=== PATIENT | female | born 1995 | race Caucasian/White ===

== ENCOUNTER 2018-12-20 20:00 | Inpatient (IN) | payer OTHER ==
[~2018-12-20] VITALS: Ht 157.5 cm; Wt 86.5 kg
[2018-12-20] MEDS ORDERED: FERR325T3 PO (20:48)
[2018-12-20] MEDS ORDERED: TUMS500C PO (20:48)
[2018-12-20] MEDS ORDERED: PRENTAB9 PO (20:48)
[2018-12-20] MEDS ORDERED: LR 1,000 ML IV SCH (20:59)
[2018-12-20] MEDS ORDERED: LACTATED RINGER'S 1000 ML IV STA (20:59)
--- NOTE | 2018-12-20 21:34 | HPEPDOC ---
Obstetrical History & Physical General Date of Admission Dec 20, 2018 at 20:50 History of Present Illness 23 yo G1 @ 39+2 by LMP([id number]) and 9+0 wk US on [id number] presents to L&D [facility] age ambulatory with c/o LOF and CTXs. Reports SROM clear fluid at 1820. Denies DFM and vaginal bleeding. GBS negative. Chief Complaint: Contractions, term, LOF, term Information Provided By: Patient Age: 23 : 1 Term: 0 Pre-term: 0 Abortions: 0 Livin Care Care: Good Care Number of Visits: 10 Dating Final EDC: Dec 25, 2018 Final EDC for Daily Update: Dec 25, 2018 Final EDC by: LMP, 1st trimester (US) LMP: Mar 20, 2018 1st Trimester Date: May 21, 2018 Weeks + Days: 9.0 Estimated Date of Confinement: Dec 25, 2018 EGA at Admission: 39.2 Antepartum Course Diagnos(e)s 1. BMI-32.2 2. anemia 3. UTI in 1st trimester 4. HGSIL with LEEP in JANUARY2018 5. 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 Asthma-childhood 2. BMI- 32.2 Surgical History: Other (LEEP) Family History Significant Family History: No pertinent family hx Social History Marital Status: Family situation: Spouse/partner home Psychosocial History: No pertinent psych hx * Smoker: non-smoker Alcohol: Denies Drugs: denies Abuse Violence Screening Have you been hit/kicked/slapp: No Have you been sexually assault: No Imunizations Tdap status: needs (missed window when changing providers) Influenza Status: declined (with education) Allergies Coded Allergies: No Known Allergies (Unverified , 12/20/18) Medications Scheduled Multivitamins/ ( 27-0.8 mg) 1 Tab Tab, 1 TAB PO DAILY Miscellaneous Medications Calcium Carbonate (Tums) 500 Mg Chw, 500 MG PO Ferrous Sulfate (Ferrous Sulfate) 325 Mg Tab, 325 MG PO Physical Examination Physical Examination GENERAL: A&O x 3 BREAST: . ABDOMEN: Gravid and Non-tender to palpation FETUS: VTX by Sahil and SVE HEART RATE: RRR LUNGS: CTA EXTREMITIES: No edema. No clonus. DTRs + 1. [id number] grams Laboratory Data CBC/BMP [id number] CBC-10.4/12.9/38.6/338 Pertinent Laboratoy Data Blood Type: O+ RBC Antibody Screen: Negative HIV: Negative Hepatitis B: Negative Hepatitis C: Negative Rapid Plasma Reagin: Nonreactive Rubella: Immune Varicella: Unknown Chlamydia/Gonorrhea: Negative Group B Streptococcus: Negative Glucose Tolerance Test: 139 Anatomy Ultrasound Ultrasound Date: Aug 07, 2018 Placenta Location: Anterior Normal Anatomy: Yes Placenta Previa: No Estimated Weight (grams): 351 Steroid Therapy Steroid Therapy: No Vaginal Examination Dilation: 1cm Effacement: 50% Station: -2 Cervical Consistency: Medium Cervical Position: Posterior Presentation: Cephalic presentation Position: Vertex (occiput) Assessment Heart Rate (FHR): 130 Variability: Moderate Accelerations: Positive Decelerations: None Tocometer Contractions: Yes Frequency: regular, other (every 2-3 min) Duration: less than 90 seconds Strength: palpated as mild, resting tone palp/soft Multi-drug resistant Organism: No history of MDRO Assessment/Plan Assessment 23 yo G1 @ 39+2 SROM clear fluid @ 1820. Regular CTXs. CAT I FHR tracing. GBS negative. Plan Admit and orient. 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 Diet: clear liquids GBS negative Labs and IV per unit protocol. LR: Bolus 1000 mL, then at 125 mL/hr. Anticipate C-S as appropriate. JO ANN CARBALLO CNM Dec 20, 2018 21:34
[2018-12-20 21:52] LABS: HEMATOCRIT 34.8 % (36.0-47.0); HEMOGLOBIN 11.1 g/dl (12.0-15.5); MEAN CORPUSCULAR HEMOGLOBIN 26.7 pg (27.0-33.0); MEAN CORPUSCULAR HGB CONC 31.9 g/dl (32.0-36.5); MEAN CORPUSCULAR VOLUME 83.9 fl (80.0-96.0); PLATELET COUNT, AUTOMATED 205 10^3/uL (150-450); RED BLOOD COUNT 4.15 10^6/uL (4.00-5.40); WHITE BLOOD COUNT 8.5 10^3/uL (4.0-10.0)
[2018-12-20 22:12] LABS: ALT/SGPT 9 U/L (12-78); LDH LACTATE DEHYDROGENASE 194 U/L (84-246); URIC ACID 6.7 MG/DL (2.6-6.0)
[2018-12-20 22:23] LABS: TOTAL PROTEIN,RANDOM URINE 862.3 MG/DL (0.0-12.0)
--- NOTE | 2018-12-20 22:37 | IPNPDOC ---
Text Note Date of Service The patient was seen on 12/20/18. NOTE [id number] @ 2237 23 yo G1 @ 39+2 SROM clear fluid @ 1820. Denies KAM, visual changes, RUQ pain, and n/v. Multiple mild range BPs noted with isolated severe range BP. BL pre-e labs drawn. PCR-6.84 Dx of pre-e without severe features diagnosed at this time. A: 23 yo G1 @ 39+2 with SROM x 4 hours. Fluid remains clear. CAT I FHR tracing with regular CTXs. P: Continue to monitor and assess. Reassess in 2-4 hours or prn. Initiate magnesium if severe range BPs return. Laboratory Tests 2 12/20/18 21:36: Nucleated Red Blood Cells % (auto) 0.0, Uric Acid 6.7H, Aspartate Amino Transf (AST/SGOT) 15, Alanine Aminotransferase (ALT/SGPT) 9L, Lactate Dehydrogenase 194 12/20/18 21:40: Urine Random Creatinine 126.0, Urine Random Total Protein 862.3H 12/20/18 21:45: Bedside Glucose (Misc Panel) 70 VS,Fishbone, I+O VS, Fishbone, I+O Laboratory Tests 12/20/18 21:36 Red Blood Count 4.15, Mean Corpuscular Volume 83.9, Mean Corpuscular Hemoglobin 26.7 L, Mean Corpuscular Hemoglobin Concent 31.9 L, Red Cell Distribution Width 16.2 H JO ANN CARBALLO CNM Dec 20, 2018 22:37
[2018-12-21] VITALS (10 sets, daily range): BP systolic 100–139; BP diastolic 58–92
--- NOTE | 2018-12-21 02:21 | IPNPDOC ---
Text Note Date of Service The patient was seen on 12/21/18. NOTE [id number] @ 0214 23 yo G1 @ 39+3 SROM clear fluid @ 1820 on 20DEC2018. Denies KAM, visual changes, RUQ pain, and n/v. S: Resting in bed on her right side breathing through her CTXs. States she would like an epidural. Spouse is at bedside O: VS- BPs remain in the mild range. No additional severe range BPs since 2056. All other VS WNL, afebrile FHR- BL- 125, moderate variability, + accels, no decels CTX- Q 2-3 min, lasting < 90 sec, palpated as moderate, resting tone palpated as soft SVE- 3/80/-2, soft/mid/vtx SROM x 8 hours, fluid remains clear A: 23 yo G1 @ 39+2 with SROM x 8 hours. No s/s of infection. CAT I FHR tracing with regular CTXs and cervical change noted. P: Continue to monitor and assess. Reassess in 4 hours or prn. Anesthesia consult for patient requested epidural. Initiate 1000 ml LR bolus then at 125 ml/hr. Initiate magnesium if severe range BPs return. VS,Fishbone, I+O VS, Fishbone, I+O Laboratory Tests 12/20/18 21:36 Red Blood Count 4.15, Mean Corpuscular Volume 83.9, Mean Corpuscular Hemoglobin 26.7 L, Mean Corpuscular Hemoglobin Concent 31.9 L, Red Cell Distribution Width 16.2 H JO ANN CARBALLO CNM Dec 21, 2018 02:21
[2018-12-21] MEDS ORDERED: FENTANYL 2MCG/ML ROPIVACAINE 0.2% IN 0.9% NACL 100ML IVBAG As Ordered ONE (02:32)
[2018-12-21] MEDS ORDERED: EPIDURAL/PCA KEYS XX PRN (03:02)
[2018-12-21] MEDS ORDERED: EPIDURAL COMMENT XX SCH (03:02)
[2018-12-21] MEDS ORDERED: NALOXONE INJ 0.4 MG/1 ML VIAL (J2310) IV PRN (03:02)
[2018-12-21] MEDS ORDERED: FENTANYL/ROPIVACAINE/NACL BAG 100 ML EPIDURAL SCH (03:02)
[2018-12-21] MEDS ORDERED: diphenhydrAMINE INJ 50MG/ML VIAL (J1200) IV PRN (03:02)
[2018-12-21] MEDS ORDERED: REFRIGERATOR IV KEYS XX PRN (03:02)
[2018-12-21] MEDS ORDERED: LACTATED RINGER'S 1000 ML IV PRN (03:02)
[2018-12-21] MEDS ORDERED: ePHEDrine SULFATE 25 MG/5 ML(5MG/ML) SYRINGE IV PRN (03:02)
[2018-12-21] MEDS ORDERED: ONDANSETRON 4MG/2ML VIAL (J2405) IV PRN (03:02)
--- NOTE | 2018-12-21 06:57 | IPNPDOC ---
Text Note Date of Service The patient was seen on 12/21/18. NOTE [id number] @ 0650 23 yo G1 @ 39+3 SROM clear fluid @ 1820 on 20DEC2018. Denies KAM, visual changes, RUQ pain, and n/v. S: Resting in bed on her left side comfortable with epidural infusing. Spouse is at bedside O: VS- mostly normal range BPs with occasional mild range BP since epidural placed. No additional severe range BPs since 2056. All other VS WNL, afebrile FHR- BL- 135, moderate variability, + accels, intermittent late deceleraions noted after epidural placement CTX- Q 1.5-2 min, lasting < 60 sec, palpated as strong, resting tone palpated as soft SVE- 6/90/-2, soft/ant/vtx SROM x 12.5 hours, fluid remains clear A: 23 yo G1 @ 39+2 with SROM x 12.5 hours. No s/s of infection. Mostly CAT I FHR tracing with occasional CAT II noted. Regular CTXs with cervical change noted. P: Continue to monitor and assess. Initiate magnesium if severe range BPs return. Dr. Lagos to assess when he takes over or prn. SBAR to Dr. Lagos @ 8310 VSTrena, I+O VSTrena, I+O Laboratory Tests 12/20/18 21:36 Red Blood Count 4.15, Mean Corpuscular Volume 83.9, Mean Corpuscular Hemoglobin 26.7 L, Mean Corpuscular Hemoglobin Concent 31.9 L, Red Cell Distribution Width 16.2 H JO ANN CARBALLO CNM Dec 21, 2018 06:57
--- NOTE | 2018-12-21 10:45 | IPNPDOC ---
Text Note Date of Service The patient was seen on 12/21/18. NOTE SBAR form CANDIE Hernandez at 0830 RN check at 930 was 100/0 NST Cat 1 Cx /+2, start pushing Sessions VS,Trena, I+O VSTrena I+O Laboratory Tests 12/20/18 21:36 Red Blood Count 4.15, Mean Corpuscular Volume 83.9, Mean Corpuscular Hemoglobin 26.7 L, Mean Corpuscular Hemoglobin Concent 31.9 L, Red Cell Distribution Width 16.2 H Vital Signs Date Time Temp Pulse Resp B/P (MAP) Pulse Ox O2 Delivery O2 Flow Rate FiO2 12/21/18 09:05 98.5 123 18 124/92 (103) SESSIONS,KYLER Schmidt MD Dec 21, 2018 10:45
[2018-12-21] MEDS ORDERED: OXYTOCIN 30 UNITS IN 0.9% NaCl 500ML IV BAG (J2590) As Ordered ONE (11:25)
[2018-12-21] MEDS ORDERED: OXYTOCIN DRIP 30 UNITS in APPROPRIATE DILUENT 1 EA IV SCH (11:51)
[2018-12-21] MEDS ORDERED: ACETAMINOPHEN TAB 650MG DOSE (2X325MG) PO PRN (12:00)
[2018-12-21] MEDS ORDERED: DIBUCAINE 1% OINTMENT 30GM TOP PRN (12:00)
[2018-12-21] MEDS ORDERED: METOCLOPRAMIDE INJ 10MG/2ML VIAL (J2765) IV PRN (12:00)
[2018-12-21] MEDS ORDERED: IBUPROFEN 800 MG TAB PO PRN (12:00)
[2018-12-21] MEDS ORDERED: RHOGAM 300 MCG (1500 IU) INJ (J2790) IM SCH (12:00)
[2018-12-21] MEDS ORDERED: MEASLES,MUMPS,RUBELLA VACCINE INJ (MMR-II) (90707) SC SCH (12:00)
--- NOTE | 2018-12-21 12:28 | DNPDOC ---
[facility] Delivery Note Delivery Note DATE OF DELIVERY: [id number]@1131 PREDELIVERY DIAGNOSIS: 39 3/7 weeks' gestation and labor. POST DELIVERY DIAGNOSIS: Delivered. PROCEDURE: Spontaneous vaginal delivery [employer] FORMER SUPERVISOR: Dr. Orozco ANESTHESIA: epidural ESTIMATED BLOOD LOSS: 200 mL. FINDINGS: 7 pound 10 ounce male , Score 8/9, nuchal cord times 1, tight DELIVERY SUMMARY: Called to room, no delay of the vtx or the ant left shoulder, post right shoulder. Vigorous to abd. Cord C/C by FOB. Cord blood. Placenta intact. Fundus firm and pit going 999. 1st degr ML lac and right l abial lac both repaired with 3-0 vicryl after 1% lidocaine bath, 10 cc's. Good cosmesis/hemostasis. Yolis OROZCO,KYLER Schmidt MD Dec 21, 2018 12:28
[2018-12-21] MEDS ORDERED: LIDOCAINE 1% MDV 20ML VIAL INFIL ONE (12:30)
[2018-12-21] MEDS: DOCUSATE SODIUM 100 MG CAP PO SCH (20:16)
[2018-12-22 06:04] VITALS: BP 128/73
--- NOTE | 2018-12-22 07:31 | IPNPDOC ---
Text Note Date of Service The patient was seen on 12/22/18. NOTE PPD1 States feeling well, pain controlled with prescribed meds. Baby bonding and feeding well. No heavy VB. Lochia slowing. Ambulatory. Tolerating PO without issues. Voiding spont. No CP/LP/SOB. VSSAF NAD A&O LE no C/C/E Ut at U-2, firm a/p: Doing well. Cont routine care. D/C likely tomorrow. Sessions VSTrena, I+O VSTrena I+O Vital Signs Date Time Temp Pulse Resp B/P (MAP) Pulse Ox O2 Delivery O2 Flow Rate FiO2 12/22/18 06:04 98.7 79 16 128/73 (91) 12/21/18 18:00 99 I&O- Last 24 Hours up to 6 AM 12/22/18 06:00 Intake Total 3662 ml Output Total 200 ml Balance 3462 ml SESSIONS,KYLER Schmidt MD Dec 22, 2018 07:31
[2018-12-22] MEDS: DOCUSATE SODIUM 100 MG CAP PO SCH (08:35)
[2018-12-22] MEDS ORDERED: PRENATAL VITAMINS CHEWABLE TABLET PO SCH (09:00)
[2018-12-22] MEDS ORDERED: ADACEL/BOOSTRIX VACCINE (DIPHTH/PERTUSS/ACELL/TETANUS)0.5ML SYR (90715) IM ONE (09:00)
[2018-12-22] MEDS ORDERED: COLA100C5 PO (11:39)
[2018-12-22] MEDS ORDERED: IBUP-1114 PO (11:40)
[2018-12-22] MEDS ORDERED: MAPA500T2 PO (11:40)
== END 2018-12-22 13:20 | disposition home or self-care (01) | DRG 807 ==
LOC: M LDO 20:00 → M LDI 20:50 → M OBS 12-21 14:50
PROVIDERS: ADMIT Midwife; ATTEND Midwife
PROC: 10E0XZZ Delivery of Products of Conception, External Approach (ICD-10-PCS; principal; 2018-12-21)
PROC: 0HQ9XZZ Repair Perineum Skin, External Approach (ICD-10-PCS; 2018-12-21)
DX: O69.89X0 Labor and delivery complicated by other cord complications, not applicable or unspecified (principal); Z37.0 Single live birth; Z3A.39 39 weeks gestation of pregnancy; O70.0 First degree perineal laceration during delivery

== ENCOUNTER 2021-05-15 10:58 | Outpatient (CLI) | payer OTHER ==
[~2021-05-15] VITALS: Ht 157.5 cm; Wt 85.5 kg
[~2021-05-15 10:58] MED LIST: COLA100C5 PO; FERR325T3 PO; IBUP-1114 PO; MAPA500T2 PO; PRENTAB9 PO; TUMS500C PO
[2021-05-15] MEDS ORDERED: IRON SUCROSE 300 MG in NS 250 ML OVER 90 MIN. IV ONE (11:00)
[2021-05-15 11:16] VITALS: BP 146/90
[2021-05-15] MEDS ORDERED: ECOT81TA5 PO (11:27)
[2021-05-15 12:00] VITALS: BP 136/88
[2021-05-15 13:21] VITALS: BP 154/84
== END 2021-05-15 13:25 | disposition home or self-care (01) ==
LOC: M INFU 10:58
PROVIDERS: ATTEND Advanced Practice Midwife
DX: O99.013 Anemia complicating pregnancy, third trimester (principal); D50.9 Iron deficiency anemia, unspecified; Z3A.36 36 weeks gestation of pregnancy
CPT/HCPCS: 96365; 96366; J1756

== ENCOUNTER 2021-05-17 10:29 | Outpatient (CLI) | payer OTHER ==
[~2021-05-17 10:29] MED LIST changes: +ECOT81TA5 PO
[2021-05-17] MEDS ORDERED: IRON SUCROSE 300 MG in NS 250 ML OVER 90 MIN. IV ONE (10:30)
[2021-05-17 10:40] VITALS: BP 160/83
[2021-05-17 11:30] VITALS: BP 134/83
[2021-05-17 12:30] VITALS: BP 146/72
== END 2021-05-17 12:45 | disposition home or self-care (01) ==
LOC: M INFU 10:29
PROVIDERS: ATTEND Advanced Practice Midwife
DX: O99.013 Anemia complicating pregnancy, third trimester (principal); D50.9 Iron deficiency anemia, unspecified; Z3A.36 36 weeks gestation of pregnancy
CPT/HCPCS: 96365; J1756

== ENCOUNTER 2021-05-29 18:59 | Inpatient (IN) | payer OTHER ==
[~2021-05-29] VITALS: Ht 157.5 cm; Wt 85.7 kg
[2021-05-29 19:55] LABS: HEMATOCRIT 35.8 % (36.0-47.0); MEAN CORPUSCULAR HEMOGLOBIN 25.3 pg (27.0-33.0); MEAN CORPUSCULAR HGB CONC 30.7 g/dl (32.0-36.5); MEAN CORPUSCULAR VOLUME 82.3 fl (80.0-96.0); PLATELET COUNT, AUTOMATED 202 10^3/uL (150-450); RED BLOOD COUNT 4.35 10^6/uL (4.00-5.40); WHITE BLOOD COUNT 7.4 10^3/uL (4.0-10.0)
[2021-05-29] MEDS ORDERED: METF500T13 PO (20:08)
[2021-05-29] MEDS ORDERED: HOME MED LIST COMPLETE! XX SCH (20:10)
[2021-05-29] MEDS ORDERED: PENICILLIN G POTASSIUM IV 5 MU in D5W MINI-BAG PLUS 100 ML IV STA (20:17)
[2021-05-29] MEDS ORDERED: TRANEXAMIC ACID INJection 1,000 MG in NS 100 ML IV PRN (20:20)
[2021-05-29] MEDS ORDERED: OXYTOCIN DRIP 30 UNITS in IV 1 EA IV PRN (20:20)
[2021-05-29] MEDS ORDERED: METHYLERGONOVINE MALEATE 0.2 MG/ML VIAL (J2210) IM PRN (20:20)
[2021-05-29 20:42] VITALS: BP 143/93
[2021-05-29] MEDS ORDERED: INSULIN IV RATE CHANGE DOCUMENTATION ML/HR XX SCH (20:45)
[2021-05-29] MEDS ORDERED: D5W/0.9% SODIUM CHLORIDE 1,000 ML IV SCH (20:45)
[2021-05-29] MEDS ORDERED: INSULIN REGULAR IN 0.9 % NACL 100 UNIT in IV 1 EA IV SCH ×2 (20:45)
[2021-05-29 20:49] VITALS: BP 95/53
[2021-05-29 20:51] LABS: ALBUMIN 2.8 GM/DL (3.2-5.2); ALT/SGPT 12 U/L (12-78); BILIRUBIN,TOTAL 0.4 MG/DL (0.2-1.0); BLOOD UREA NITROGEN 11 MG/DL (7-18); CALCIUM LEVEL 9.5 MG/DL (8.5-10.1); CARBON DIOXIDE LEVEL 20 MEQ/L (21-32); CHLORIDE LEVEL 108 MEQ/L (98-107); GLOMERULAR FILTRATION RATE > 60.0 (>60); GLUCOSE, FASTING 86 MG/DL (70-100); POTASSIUM SERUM 4.2 MEQ/L (3.5-5.1); SODIUM LEVEL 138 MEQ/L (136-145); TOTAL PROTEIN 6.3 GM/DL (6.4-8.2)
[2021-05-29] MEDS ORDERED: LR 1,000 ML IV SCH (20:55)
[2021-05-29] MEDS ORDERED: OXYTOCIN DRIP 30 UNITS in IV 1 EA IV SCH (20:55)
--- NOTE | 2021-05-29 21:19 | HPEPDOC ---
Obstetrical History & Physical General Date of Admission May 29, 2021 at 18:59 History of Present Illness 25 yo at 39+1 weeks gestation by LMP of [id number] c/w 17 week US presents to L&D for an IOL for GDMA2 on metformin. She reports intermittent contractions but otherwise has no complaints. She denies any vaginal bleeding or leakage of fluid. She endorses regular movement. 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 of LEEP) Past Medical History Medical History Asthma Gestational diabetes Mild anemia Surgical History: Other (LEEP) Family History Significant Family History: No pertinent family hx Social History Marital Status: Family situation: Spouse/partner home Psychosocial History: No pertinent psych hx * Smoker: non-smoker Alcohol: Denies Drugs: denies Imunizations Tdap status: declined Influenza Status: needs Allergies Coded Allergies: No Known Allergies (Unverified , 12/20/18) Medications Scheduled Aspirin (Ecotrin) 81 Mg Tablet.dr, 81 MG PO DAILY for pain Metformin HCl (Metformin HCl) 500 Mg Tablet, 1 TAB PO BID No.137/Iron/Folic Acd ( Vitamin Tablet) 1 Tab Tab, 1 TAB PO DAILY Physical Examination Physical Examination GENERAL: Alert and oriented times three. ABDOMEN: Gravid and non-tender to touch. FETUS: Is vertex (VTX) by sterile vaginal examination (SVE) EXTREMITIES: No edema. Vital Signs/I&O Vital Signs Date Time Temp Pulse Resp B/P (MAP) Pulse Ox O2 Delivery O2 Flow Rate FiO2 05/29/21 19:58 98.0 98 Laboratory Data 24H LABS Laboratory Tests 2 05/29/21 19:19: Serology Scanned Report Hepatitis B Testing 05/29/21 19:44: Nucleated Red Blood Cells % (auto) 0.0, Anion Gap 10, Glomerular Filtration Rate > 60.0, Calcium Level 9.5, Total Bilirubin 0.4, Aspartate Amino Transf (AST/SGOT) 10, Alanine Aminotransferase (ALT/SGPT) 12, Alkaline Phosphatase 224H, Total Protein 6.3L, Albumin 2.8L, Albumin/Globulin Ratio 0.8L CBC/BMP Laboratory Tests 05/29/21 19:44 Urine Culture: No Growth Pertinent Laboratoy Data Blood Type: O+ RBC Antibody Screen: Negative HIV: Negative Hepatitis B: Negative Hepatitis C: Unknown Rapid Plasma Reagin: Nonreactive Rubella: Immune Varicella: Immune Chlamydia/Gonorrhea: Negative Group B Streptococcus: Positive Quad Screen Test: Negative Cystic Fibrosis: Negative Glucose Tolerance Test: 194 (Did finger sticks in lieu of 3hr GTT and was diagnosed with GDM) Anatomy Ultrasound Placenta Location: Anterior Normal Anatomy: Yes Placenta Previa: No Other Ultrasounds growth scan on 09May2021 measured the fetus at the 42nd percentile by weight. Steroid Therapy Steroid Therapy: No Vaginal Examination Dilation: 4 cm Effacement: 50% Station: -2 Cervical Consistency: Soft Cervical Position: Middle Presentation: Cephalic presentation Position: Vertex (occiput) Assessment Heart Rate (FHR): 130 Variability: Moderate Accelerations: Positive Decelerations: None Tocometer Contractions: Yes Frequency: irregular Strength: palpated as mild Assessment/Plan Assessment 25 yo at 39+1 weeks gestation presented to L&D for an IOL for gestational diabetes controlled with metformin. Plan Admit for IOL. Labs per L&D protocol. Apply IV fluids. Glucose checks Q2H in latent labor and Q1H in active labor. Insulin drip protocol ordered. Cervix favorable. Will begin IOL with pitocin. Patient may have epidural if and when desired. Anticipate . Labor and Delivery Counseling Vaginal / Operative vaginal delivery / C section counseling We will deliver your baby through the vagina with possible assistance of forceps or vacuum device if needed for maternal or indications. Forceps and vacuum are devices that can assist with vaginal delivery when normal pushing efforts cannot achieve delivery on their own or when delivery is needed in an emergency for baby's well-being. Medications may be required to induce or augment (help) your labor in order to achieve a vaginal delivery. An episiotomy may be required to help your baby to delivery vaginally. You may also require repair of any lacerations or tears of your vagina or vulva that are caused by delivery. In some cases, emergencies can occur that require an emergency section delivery so quickly that there may not be enough time to stop and complete consent forms for section. Understand that if this occurs, your providers will discuss the need for a section with you before they proceed with surgery. section is the delivery of your baby through an incision in your abdomen. In some situations, section may be safer to mom and baby than continuing labor and is only performed when clinically indicated. Risks of vaginal delivery include but are not limited to: Bleeding, infection, injury to the vagina, pelvic structures, injury to baby, damage to the uterus, reactions to anesthesia, uterine rupture, risk of hysterectomy for life threatening bleeding, or . Medications used to induce or augment labor may increase your risk for infection, uterine tachysystole, uterine rupture, heart rate abnormalities, need for emergency delivery or possible hysterectomy, and hemorrhage. Additional risks for use of forceps and vacuum include: increased risk of perineal and vaginal lacerations, risk of urinary or bowel incontinence, increased risk of injury to baby with bruising, scratches, hematomas on the head, or intracranial bleeding. Ms. Lerner appears to understand these risks and elects to proceed with IOL. She also consents to a blood transfusion if necessary. All patient and questions answered. DO GLADYS Escobar CHRISTOPHER J. DO May 29, 2021 21:19
[2021-05-29] MEDS: NS 1,000 ML IV SCH (22:05)
[2021-05-29 22:15] VITALS: BP 125/83
[2021-05-29 22:43] VITALS: BP 120/70
[2021-05-29 23:13] VITALS: BP 123/79
[2021-05-29 23:43] VITALS: BP 114/67
[2021-05-30] VITALS (28 sets, daily range): BP systolic 103–158; BP diastolic 53–103
[2021-05-30] MEDS: PENICILLIN G POTASSIUM IV 2.5 MU in IV 1 EA IV SCH ×2 (02:16→05:53)
[2021-05-30] MEDS ORDERED: FENTANYL 2MCG/ML ROPIVACAINE 0.2% IN 0.9% NACL 100ML IVBAG As Ordered ONE (02:21)
[2021-05-30] MEDS: NS 1,000 ML IV SCH ×2 (03:08→12:45)
[2021-05-30] MEDS ORDERED: EPIDURAL/PCA KEYS XX PRN (03:10)
[2021-05-30] MEDS ORDERED: REFRIGERATOR IV KEYS XX PRN (03:10)
[2021-05-30] MEDS ORDERED: ePHEDrine SULFATE 25 MG/5 ML(5MG/ML) SYRINGE IV PRN (03:10)
[2021-05-30] MEDS ORDERED: diphenhydrAMINE 50MG/ML VIAL (J1200) IV PRN (03:10)
[2021-05-30] MEDS ORDERED: NALOXONE INJ 0.4MG/1ML VIAL (J2310 PER 1MG) IV PRN (03:10)
[2021-05-30] MEDS ORDERED: FENTANYL/ROPIVACAINE/NACL BAG 100 ML EPIDURAL SCH (03:10)
[2021-05-30] MEDS ORDERED: EPIDURAL COMMENT XX SCH (03:10)
[2021-05-30] MEDS ORDERED: LACTATED RINGER'S 1000 ML IV PRN (03:10)
[2021-05-30] MEDS ORDERED: ONDANSETRON 4MG/2ML VIAL IV PRN ×2 (03:10→06:20)
--- NOTE | 2021-05-30 06:22 | IPNPDOC ---
Text Note Date of Service The patient was seen on 05/30/21. NOTE Taylor has made good progress on pitocin. She received an epidural at ~0330. She underwent SROM, clear fluid, shortly thereafter. SVE: C/C/0. She has been vomiting. She feels intermittent pressure. FHR tracing Cat I with moderate variability, +accels, +early decels. Ctx regular. She has received 2 doses of PCN. Glucose levels have been stable at 80s-100s. Will treat nausea with zofran. When able will begin pushing efforts. All questions answered. Iam VS,Trena, I+O VS, Trena, I+O Laboratory Tests 05/29/21 19:44 Vital Signs Date Time Temp Pulse Resp B/P (MAP) Pulse Ox O2 Delivery O2 Flow Rate FiO2 05/30/21 05:49 120 18 158/84 (108) 05/30/21 03:34 98.2 05/29/21 19:58 98 LUIS GRAHAM DO May 30, 2021 06:22
[2021-05-30] MEDS ORDERED: IBUPROFEN 800 MG TAB PO PRN (07:35)
[2021-05-30] MEDS ORDERED: MEASLES,MUMPS,RUBELLA VACCINE INJ (MMR-II) (90707) SC SCH (07:35)
[2021-05-30] MEDS ORDERED: OXYTOCIN DRIP 30 UNITS in IV 1 EA IV SCH (07:35)
[2021-05-30] MEDS ORDERED: ACETAMINOPHEN 500 MG TAB PO PRN (07:35)
[2021-05-30] MEDS ORDERED: ACETAMINOPHEN TAB 650MG DOSE (2X325MG) PO PRN (07:35)
[2021-05-30] MEDS ORDERED: RHOGAM 300 MCG (1500 IU) INJ (J2790) IM SCH (07:35)
[2021-05-30] MEDS ORDERED: DIBUCAINE 1% OINTMENT 30GM TOP PRN (07:35)
[2021-05-30] MEDS ORDERED: DOCUSATE SODIUM 100MG CAPSULE PO PRN (07:35)
--- NOTE | 2021-05-30 07:44 | DNPDOC ---
[facility] Delivery Note Delivery Note DATE OF DELIVERY: 30May2021 at 0717 PREDELIVERY DIAGNOSIS: 39+2 weeks gestation and IOL for GDMA2 POST DELIVERY DIAGNOSIS: Delivered. PROCEDURE: Spontaneous vaginal delivery SOCIAL WORKER PALLIATIVE CARE: Dr. Vitale ANESTHESIA: Neuraxial (epidural) ESTIMATED BLOOD LOSS: 200 FINDINGS: 7 lb 10oz, male infant, Score 9/9 DELIVERY SUMMARY: Taylor progressed steadily in labor on pitocin. She received an epidural at ~0330 and underwent SROM, clear fluid, shortly thereafter. She entered 2nd stage and began pushing. With excellent effort her baby delivered in less than 10 minutes of pushing. Presentation was ALYSHA with restitution to ROT. No delay of either shoulder. The was dried and stimulated on the field and a bulb suction was used. The was placed on the maternal abdomen and cried vigorously. The three vessel umbilical cord was then clamped and cut by the FOB after appropriate time delay and under my direction. Third stage was completed with gentle traction on on the cord and it was productive of an intact placenta. The uterus was firmed with massage and pitocin was administered IV bolus. Inspection of the cervix, vagina, labia, and perineum revealed a midline first degree perineal laceration. This was repaired with 3-0 vicryl suture in the usual fashion. There was excellent cosmesis and hemostasis after the repair. The fundus was palpated again and was firm. Sponge, instrument, and needle counts were correct X2. Mother and stable when I left the room. DO GLADYS Escobar CHRISTOPHER J. DO May 30, 2021 07:44
[2021-05-30] MEDS: PRENATAL VITAMINS CHEWABLE TABLET PO SCH (11:51)
[2021-05-31 06:01] VITALS: BP 106/62
[2021-05-31] MEDS: PRENATAL VITAMINS CHEWABLE TABLET PO SCH (07:59)
[2021-05-31] MEDS: IBUPROFEN 600MG TAB PO PRN (08:00)
--- NOTE | 2021-05-31 12:29 | IPN ---
PROGRESS NOTE DATE: 05/31/2021 DAY #1 SUBJECTIVE: This lady is a 25-year-old 2 now para 2 admitted at 39 and 1 weeks of gestation for induction of labor, being on AGDM2 on Metformin but she was having contractions on admission. With epidural in place, spontaneous vaginal delivery of male , 7 pounds, 10 ounces, Apgars of 9 and 9 at 1 and 5 minutes respectively. Her admitting hemoglobin was 11.0, hematocrit 35.8 and platelets were 202,000. Her fasting glucose was 86. OBJECTIVE: Her vital signs this morning: Blood pressure 106/62, respirations 14, pulse 69, temperature is 96.9. We discussed phlebitis, cystitis, mastitis, endometritis, cellulitis, diet, exercise, pain management, perineal and breast care. The rest of the examination is unremarkable. Normocephalic, atraumatic. Neck with full range of motion. Pupils equal and reactive to light. Distal pulses are symmetric. No evidence of DVT, PE or superficial phlebitis. Chest is clear bilaterally to bases. No wheezes or rhonchi. No CVA tenderness. Abdomen is soft, four quadrant bowel sounds are noted. The uterus is two below, lochia is moderate. No urgency or frequency. No nausea, vomiting, diarrhea or constipation. No rashes, lesions or pruritus. No arthralgias or myalgias. No shortness of breath. No joint pain. In summary, we have a term gestation, delivered a livebirth male . Plans are to pepper picker her medications at [place], a six week checkup at [facility]. All questions are answered, a 20 minute discussion. cc: [facility]
[2021-05-31 18:00] VITALS: BP 112/60
[2021-06-01] MEDS: IBUPROFEN 600MG TAB PO PRN (00:30)
[2021-06-01 06:00] VITALS: BP 123/76
[2021-06-01] MEDS ORDERED: IBUP80TA PO (07:41)
[2021-06-01] MEDS ORDERED: ACET1TAB55 PO (07:41)
--- NOTE | 2021-06-01 07:44 | DS.PDOC ---
Discharge Summary General Date of Admission May 29, 2021 at 18:59 Date of Discharge 01Jun2021 Discharge Summary HOSPITAL COURSE: Ms. Lerner is a 25 yo G2 now P2 who underwent an uncomplicated on 30May2021 after being admitted for an IOL for GDMA2. Her postoperative course was uncomplicated. On her day of discharge she met all appropriate discharge criteria. She was ambulating, voiding, tolerating a regular diet, passing gas, had minimal lochia, and her pain was well controlled with PO pain medications. DISCHARGE MEDICATIONS: Please see below. ALLERGIES: Please see below. PHYSICAL EXAMINATION ON DISCHARGE: VITAL SIGNS: Please see below. GENERAL: Sitting up in bed, AAOX3, NAD ABDOMINAL EXAMINATION: Soft. Fundus firm at U-1. No fundal tenderness. EXTREMITIES: trace edema PSYCHIATRIC EXAMINATION: Affect appropriate ACTIVITY: Pelvic rest for 6 weeks. DIET: Regular DISCHARGE PLAN: Discharge home DISPOSITION: Discharge home on 01Jun2021. DISCHARGE INSTRUCTIONS: 1. No heavy lifting for 6 weeks. Pelvic rest for 6 weeks. ITEMS TO FOLLOWUP ON ON OUTPATIENT: 1. appointment in 6 weeks DISCHARGE CONDITION: Stable. TIME SPENT ON DISCHARGE: 20 minutes. Vital Signs/I&Os Vital Signs Date Time Temp Pulse Resp B/P (MAP) Pulse Ox O2 Delivery O2 Flow Rate FiO2 06/01/21 06:00 97.9 65 18 123/76 (92) 100 Room Air I&O- Last 24 Hours up to 6 AM 06/01/21 06:00 Intake Total 240 ml Balance 240 ml Discharge Medications Scheduled No.137/Iron/Folic Acd ( Vitamin Tablet) 1 Tab Tab, 1 TAB PO DAILY, (Reported) Scheduled PRN Acetaminophen (Acetaminophen) 325 Mg Tablet, 650 MG PO Q4HP PRN for PAIN LEVEL 1 -5 Ibuprofen (Ibuprofen) 800 Mg Tablet, 800 MG PO Q8HP PRN for PAIN LEVEL 6-10 Allergies Coded Allergies: No Known Allergies (Unverified , 12/20/18) LUIS GRAHAM DO Jun 01, 2021 07:44
[2021-06-01] MEDS: PRENATAL VITAMINS CHEWABLE TABLET PO SCH (09:00)
== END 2021-06-01 12:20 | disposition home or self-care (01) | DRG 807 ==
LOC: M LDI 18:59 → M OBS 05-30 12:35
PROVIDERS: ADMIT Obstetrics & Gynecology; ATTEND Obstetrics & Gynecology
PROC: 10E0XZZ Delivery of Products of Conception, External Approach (ICD-10-PCS; principal; 2021-05-30)
PROC: 0HQ9XZZ Repair Perineum Skin, External Approach (ICD-10-PCS; 2021-05-30)
PROC: 3E033VJ Introduction of Other Hormone into Peripheral Vein, Percutaneous Approach (ICD-10-PCS; 2021-05-30)
DX: O24.425 Gestational diabetes mellitus in childbirth, controlled by oral hypoglycemic drugs (principal); Z37.0 Single live birth; Z3A.39 39 weeks gestation of pregnancy; O99.02 Anemia complicating childbirth; D64.9 Anemia, unspecified; O99.824 Streptococcus B carrier state complicating childbirth; O70.0 First degree perineal laceration during delivery

== ENCOUNTER 2022-12-19 12:01 | Emergency (ER) | payer OTHER ==
[~2022-12-19] VITALS: Ht 157.5 cm; Wt 94.4 kg
[~2022-12-19 12:01] MED LIST changes: +ACET1TAB55 PO; +IBUP80TA PO; +METF500T13 PO
[2022-12-19] MEDS ORDERED: WELLTAB38 PO (12:13)
[2022-12-19] MEDS ORDERED: AUGMENTIN 875 MG TAB PO ONE (12:40)
[2022-12-19] MEDS ORDERED: IBUP-1022 PO (13:25)
[2022-12-19] MEDS ORDERED: AMOX875T2 PO (13:25)
[2022-12-19 13:29] VITALS: BP 136/68
== END 2022-12-19 13:40 | disposition home or self-care (01) ==
LOC: M ED 12:01
DX: J02.0 Streptococcal pharyngitis (principal); F90.9 Attention-deficit hyperactivity disorder, unspecified type; Z79.2 Long term (current) use of antibiotics; Z79.1 Long term (current) use of non-steroidal anti-inflammatories (NSAID)